=== PATIENT | female | born 1950 | race Two or more races ===

== ENCOUNTER → 2017-06-06 | Day surgery (SDC) | payer OTHER ==
[~2017-06-06] VITALS: Ht 170.2 cm; Wt 97.5 kg
[~2017-06-06] MED LIST: AMIO200T33 PO; BENZOCAINE (DENTAL) 20 % SPRAY 60ML MT ONE; FLUMAZENIL 0.1 MG/ML INJ 10ML MDV IV ONE; LIDOCAINE VISCOUS 2% 15ML UD PO ONE; MIDAZOLAM HCL 1MG/1ML-2 ML VIAL IV ONE; NALOXONE HCL 0.4 MG/ML VIAL IV ONE; RIV20T PO; diphenhdrAMINE HCL 50 MG/1 ML VL IV ONE; diphenhdrAMINE HCL 50 MG/1 ML VL ONE; fentaNYL CITRATE 100 MCG/2 ML VL IV ONE
== END | disposition home or self-care (01) ==
LOC: CATH 07:20
PROVIDERS: ATTEND Internal Medicine
DX: I48.91 Unspecified atrial fibrillation (principal); I10 Essential (primary) hypertension
CPT/HCPCS: 92960; 93005; 93312; J1200; J2250; J3010; J7040; 99152